=== PATIENT | male | born 1945 | race Caucasian/White ===

== ENCOUNTER 2023-05-13 09:29 | Outpatient (CLI) | payer MEDICARE, OTHER, SELFPAY | END 2023-05-13 09:30 | disposition home or self-care (01) | LOC: AMB 05-22 00:55 | PROVIDERS: Visit Provider Student in an Organized Health Care Education/Training Program | DX: R55 Syncope and collapse (principal); S49.92XA Unspecified injury of left shoulder and upper arm, initial encounter; W01.0XXA Fall on same level from slipping, tripping and stumbling without subsequent striking against object, initial encounter; Y92.009 Unspecified place in unspecified non-institutional (private) residence as the place of occurrence of the external cause | CPT/HCPCS: A0425; A0427 ==

== ENCOUNTER 2023-05-13 10:11 | Emergency (ER) | payer MEDICARE, OTHER, SELFPAY ==
[2023-05-13] VITALS (19 sets, daily range): BP systolic 125–170; BP diastolic 65–80; PULSE 50–63; RESP 12–16; TEMP 36.4; O2SAT 94–98; BMI 29.1
--- NOTE | 2023-05-13 10:33 | CRLHL7_ITS ---
For Patients: As a result of the Century Cures Act, medical imaging exams and procedure reports are released immediately into your electronic medical record. You may view this report before your referring provider. If you have questions, please contact your health care provider. Indication: FELL AND HIT HIS LEFT SHOULDER AND ELBOW Technique: Three views of the left shoulder Comparison: None. Findings/Impression: No acute fracture or malalignment. There are mild degenerative changes of the acromioclavicular joint. No significant degenerative changes of the glenohumeral joint. There may be slight superior subluxation of the humerus relative to the glenoid, which can be seen with chronic rotator cuff injury. No suspicious osseous lesions. No soft tissue abnormalities. Small calcified granuloma in the left upper lobe; otherwise, the lungs are clear. Dictated by José Manuel Conde MD @ 05/13/2023 11:08:57 AM (Electronically Signed)
--- NOTE | 2023-05-13 10:33 | CRLHL7_ITS ---
For Patients: As a result of the Century Cures Act, medical imaging exams and procedure reports are released immediately into your electronic medical record. You may view this report before your referring provider. If you have questions, please contact your health care provider. HISTORY: Fall, trauma. TECHNIQUE: Three views. FINDINGS: There is no radiographically evident acute/displaced fracture/dislocation. No evidence of elbow joint effusion. Cortical contour, bone density and bony alignment appear normal. Dictated by Mike Dennis MD @ 05/13/2023 11:11:25 AM (Electronically Signed)
--- NOTE | 2023-05-13 10:34 | CRLHL7_ITS ---
For Patients: As a result of the Century Cures Act, medical imaging exams and procedure reports are released immediately into your electronic medical record. You may view this report before your referring provider. If you have questions, please contact your health care provider. INDICATION Fall. TECHNIQUE: Noncontrast CT images of the brain. COMPARISON: None. FINDINGS: The ventricles and sulci are within normal limits for patient age. No mass effect or midline shift. The romero-white differentiation is maintained. No acute intracranial hemorrhage or pathologic extra-axial fluid collection. Scattered hypoattenuation in the supratentorial white matter, typical for mild chronic microvascular ischemic changes. Intracranial atherosclerotic calcifications. The globes are symmetric. The calvarium is intact. Minimal ethmoid sinus mucosal thickening. The mastoid air cells are clear. IMPRESSION: No acute intracranial hemorrhage or mass effect. Please note that all CT scans at this facility use dose modulation, iterative reconstruction, and/or weight-based dosing when appropriate to reduce radiation dose to as low as reasonably achievable. Dictated by Otf Nickerson MD @ 05/13/2023 11:11:34 AM (Electronically Signed)
--- NOTE | 2023-05-13 10:34 | CRLHL7_ITS ---
For Patients: As a result of the Century Cures Act, medical imaging exams and procedure reports are released immediately into your electronic medical record. You may view this report before your referring provider. If you have questions, please contact your health care provider. INDICATION: Fall. TECHNIQUE: Noncontrast CT images of the cervical spine. COMPARISON: None. FINDINGS: Mild reversal of the cervical lordosis. Mild rightward cervical curvature. No acute fracture or traumatic subluxation. Advanced degenerative changes at the atlantodental articulation. Grade 1 anterolisthesis of C2 on C3 and C3 on C4, and C4 on C5. Advanced disc height loss at C4-5 and C5-6. Multilevel posterior disc osteophyte complexes contribute up to mild spinal canal narrowing at C4-5 and C5-6. Multilevel uncinate spurring and facet arthropathy contributing up to advanced neural foraminal stenosis on the right at C5-6. No concerning opacities in the lung apices. IMPRESSION: 1. No acute fracture or traumatic subluxation. 2. Multilevel cervical spondylosis. Please note that all CT scans at this facility use dose modulation, iterative reconstruction, and/or weight-based dosing when appropriate to reduce radiation dose to as low as reasonably achievable. Dictated by Otf Nickerson MD @ 05/13/2023 11:14:24 AM (Electronically Signed)
--- NOTE | 2023-05-13 10:41 | ED.FALL ---
HPI - Fall General Date Seen: 05/13/23 Chief Complaint: Fall/Minor Trauma Stated Complaint: Fall Time Seen by Provider: 05/13/23 10:22 Source: patient and EMS Mode of arrival: EMS Limitations: no limitations History of Present Illness HPI Narrative: Patient is a 77-year-old male with a history of high blood pressure, hyperlipidemia presenting to the emergency department for a fall. He is complaining about left shoulder pain. He states he was feeling his water cup up with water when he turned around and tripped over a step stool that was behind him. He was falling down and states he tried to keep his head from hitting the ground but cannot say for certain that he did not hit his head. After that he went to a chair and was told he passed out. His states she thinks he was only out for short amount time. She does admit having Alzheimer's and has trouble with details. Patient does states he was feeling nauseated and lightheaded before he passed out but now feels back to normal. Denies fevers, chills, chest pain, shortness of breath, weakness, numbness, abdominal pain, dizziness, vision changes. Main complaint is the left shoulder pain. Related Data Home Medications Medication Instructions Recorded Confirmed acetaminophen 500 mg capsule 500 mg PO Q6H PRN 05/13/23 05/13/23 amlodipine 10 mg tablet 10 mg PO DAILY 05/13/23 05/13/23 aspirin 81 mg capsule 81 mg PO DAILY 05/13/23 05/13/23 atorvastatin 10 mg tablet 10 mg PO QHS 05/13/23 05/13/23 doxazosin 1 mg tablet (Cardura) 1 mg PO DAILY 05/13/23 05/13/23 gabapentin 300 mg capsule 300 mg PO BID 05/13/23 05/13/23 losartan 50 mg tablet 50 mg PO BID 05/13/23 05/13/23 pantoprazole 40 mg tablet,delayed 40 mg PO DAILY 05/13/23 05/13/23 release tadalafil 5 mg tablet (Cialis) 5 mg PO DAILY 05/13/23 05/13/23 triamterene 37.5 1 cap PO DAILY 05/13/23 05/13/23 mg-hydrochlorothiazide 25 mg capsule Allergies Allergy/AdvReac Type Severity Reaction Status Date / Time chlorpromazine AdvReac Unknown Verified 05/13/23 10:16 [From Chloe + Isabelazine] Review of Systems Status of ROS: Reports: 10 or more systems reviewed and unremarkable except as noted in History and below PFSH PFS Social History Smoking Status: Never smoker Do you use any of these nicotine containing products: None How often do you have a drink containing alcohol: never AUDIT-C Alcohol total score: 0 Non-prescribed substance use: denies use Exam Narrative: Exam Narrative: Const: Well-nourished, Well-developed, in mild distress Eyes: PERRL, no conjunctival injection, and symmetrical lids HENT: Atraumatic external nose and ears. Moist mucous membranes. Neck: Symmetric, trachea midline, No thyromegaly. CVS: Bradycardic, No murmurs or gallops. Peripheral pulses 2+ and equal in all extremities RESP: Unlabored respiratory effort. Clear to auscultation bilaterally. GI: Nontender/Nondistended, No rebound or guarding. MSK:Extremities w/o deformity, tenderness to anterior left shoulder and left elbow, no spinal tenderness or step-offs noted Skin: Warm, Dry. No rashes or lesions. Neuro: Normal Muscle tone, No focal neurological deficits. GCS 15 Psych: Awake, Alert, & Oriented x3. Appropriate mood and affect. Const: Vital Signs, click to edit/add: Vital Signs - 24 hr 05/13/23 10:12 05/13/23 10:18 05/13/23 10:21 Temperature 97.5 F L Pulse Rate 56 L 55 L Pulse Rate [Pulse Oximeter] 56 L Pulse Rate [orthos tatic lying Pulse Oximeter] Pulse Rate [orthos tatic sitting Puls e Oximeter] Pulse Rate [orthos tatic standing Pul se Oximeter] Respiratory Rate 14 14 16 Blood Pressure 139/70 138/80 Blood Pressure [Ri ght Upper Arm] 139/70 Blood Pressure [or thostatic lying Ri ght Arm] Blood Pressure [or thostatic sitting Right Arm] Blood Pressure [or thostatic standing Right Arm] Pulse Oximetry 98 98 97 Oxygen Delivery Me thod Room Air 05/13/23 10:32 05/13/23 10:42 05/13/23 11:07 Temperature Pulse Rate 56 L 59 L 55 L Pulse Rate [Pulse Oximeter] Pulse Rate [orthos tatic lying Pulse Oximeter] Pulse Rate [orthos tatic sitting Puls e Oximeter] Pulse Rate [orthos tatic standing Pul se Oximeter] Respiratory Rate 12 14 12 Blood Pressure 125/67 127/68 139/75 Blood Pressure [Ri ght Upper Arm] Blood Pressure [or thostatic lying Ri ght Arm] Blood Pressure [or thostatic sitting Right Arm] Blood Pressure [or thostatic standing Right Arm] Pulse Oximetry 95 94 97 Oxygen Delivery Me thod 05/13/23 11:13 05/13/23 11:22 05/13/23 11:32 Temperature Pulse Rate 56 L 54 L 50 L Pulse Rate [Pulse Oximeter] Pulse Rate [orthos tatic lying Pulse Oximeter] Pulse Rate [orthos tatic sitting Puls e Oximeter] Pulse Rate [orthos tatic standing Pul se Oximeter] Respiratory Rate 14 12 14 Blood Pressure 170/76 H 140/74 H 131/67 Blood Pressure [Ri ght Upper Arm] Blood Pressure [or thostatic lying Ri ght Arm] Blood Pressure [or thostatic sitting Right Arm] Blood Pressure [or thostatic standing Right Arm] Pulse Oximetry 96 97 95 Oxygen Delivery Me thod 05/13/23 11:42 05/13/23 11:51 05/13/23 12:00 Temperature Pulse Rate 55 L 51 L Pulse Rate [Pulse Oximeter] Pulse Rate [orthos tatic lying Pulse Oximeter] 51 L Pulse Rate [orthos tatic sitting Puls e Oximeter] 62 Pulse Rate [orthos tatic standing Pul se Oximeter] 60 Respiratory Rate 12 16 Blood Pressure 138/66 137/66 Blood Pressure [Ri ght Upper Arm] Blood Pressure [or thostatic lying Ri ght Arm] 133/67 Blood Pressure [or thostatic sitting Right Arm] 135/68 Blood Pressure [or thostatic standing Right Arm] 150/65 H Pulse Oximetry 95 94 Oxygen Delivery Me thod 05/13/23 12:01 05/13/23 12:02 05/13/23 12:04 Temperature Pulse Rate 62 57 L 63 Pulse Rate [Pulse Oximeter] Pulse Rate [orthos tatic lying Pulse Oximeter] Pulse Rate [orthos tatic sitting Puls e Oximeter] Pulse Rate [orthos tatic standing Pul se Oximeter] Respiratory Rate 12 14 12 Blood Pressure 133/67 135/68 150/65 H Blood Pressure [Ri ght Upper Arm] Blood Pressure [or thostatic lying Ri ght Arm] Blood Pressure [or thostatic sitting Right Arm] Blood Pressure [or thostatic standing Right Arm] Pulse Oximetry 97 96 97 Oxygen Delivery Me thod 05/13/23 12:05 05/13/23 12:12 05/13/23 12:15 Temperature Pulse Rate 53 L 53 L 51 L Pulse Rate [Pulse Oximeter] Pulse Rate [orthos tatic lying Pulse Oximeter] Pulse Rate [orthos tatic sitting Puls e Oximeter] Pulse Rate [orthos tatic standing Pul se Oximeter] Respiratory Rate Blood Pressure 139/68 Blood Pressure [Ri ght Upper Arm] Blood Pressure [or thostatic lying Ri ght Arm] Blood Pressure [or thostatic sitting Right Arm] Blood Pressure [or thostatic standing Right Arm] Pulse Oximetry 97 95 95 Oxygen Delivery Me thod 05/13/23 12:22 Temperature Pulse Rate 59 L Pulse Rate [Pulse Oximeter] Pulse Rate [orthos tatic lying Pulse Oximeter] Pulse Rate [orthos tatic sitting Puls e Oximeter] Pulse Rate [orthos tatic standing Pul se Oximeter] Respiratory Rate Blood Pressure 141/71 H Blood Pressure [Ri ght Upper Arm] Blood Pressure [or thostatic lying Ri ght Arm] Blood Pressure [or thostatic sitting Right Arm] Blood Pressure [or thostatic standing Right Arm] Pulse Oximetry 95 Oxygen Delivery Me thod Course Vital Signs Vital signs: Initial Vital Signs Temperature 97.5 F L 05/13/23 10:12 Temperature Source Temporal Artery Scan 05/13/23 10:12 Pulse Rate 56 L 05/13/23 10:12 Pulse Rhythm Regular 05/13/23 10:12 Respiratory Rate 14 05/13/23 10:12 Blood Pressure 139/70 05/13/23 10:12 Blood Pressure Mean 93 05/13/23 10:12 Blood Pressure Position Supine 05/13/23 10:12 Pulse Oximetry 98 05/13/23 10:12 Oxygen Delivery Method Room Air 05/13/23 10:12 Vital Signs Temperature 97.5 F L 05/13/23 10:12 Pulse Rate 56 L 05/13/23 10:12 Respiratory Rate 14 05/13/23 10:12 Blood Pressure 139/70 05/13/23 10:12 Pulse Oximetry 98 05/13/23 10:12 Oxygen Delivery Method Room Air 05/13/23 10:12 Temperature 97.5 F L 05/13/23 10:12 Pulse Rate 59 L 05/13/23 12:22 Respiratory Rate 12 05/13/23 12:04 Blood Pressure 141/71 H 05/13/23 12:22 Pulse Oximetry 95 05/13/23 12:22 Oxygen Delivery Method Room Air 05/13/23 10:12 MDM - Fall MDM Narrative Medical decision making narrative: TTA was called by nursing staff. Patient is a 77-year-old male presenting to the emergency department after a fall. The initial fall sounds like it was all mechanical in nature. He is not sure if he hit his head so I will CT his head, cervical spine. X-rays his left shoulder and left elbow. Also sounds like he has syncopal episode shortly after this fall. This could have been vasovagal by cannot say for sure. He is bradycardic in the 50s but he is not sure what is regular heart rate is. I did review both epic and expanse and could not find previous heart rates to see if this bradycardia is new or not. EKG, CBC, CMP, COVID/flu/RSV, troponin all ordered. EKG shows sinus bradycardia with an apparent 1st degree AV block. No other concerning findings. Lab work all returned showing no concerning abnormalities. We did do orthostatic blood pressures that showed no concerning findings. His imaging also shows no abnormalities. CT head and cervical spine showed no acute findings per radiologist and my interpretation. X-rays also showed no concerning abnormalities per my and the radiologist's interpretation. There are some chronic changes seen on the left shoulder but nothing acutely concerning. He is otherwise doing well at this time. While he is bradycardic in the 50s I cannot say this is new or not and he did well when life sternum up for orthostatic blood pressures. I do not believe this is something needs to stay in the hospital for any does states she has follow-up with his primary doctor next week. I believe he is safe for discharge Lab Data Labs: Lab Results 05/13/23 05/13/23 05/13/23 Range/Units 10:42 11:17 11:23 WBC 5.11 (4.50-11.00) K/uL RBC 3.76 L (4.30-5.90) m/uL Hgb 11.4 L (13.5-17.5) gm/dL Hct 35.1 L (37.0-53.0) % MCV 93 (80-100) fL MCH 30 (26-34) pg MCHC 33 (32-36) gm/dL RDW Coeff of Adis 13.6 (11.5-15.5) % Plt Count 201 (140-440) K/uL Neut % (Auto) 78.3 H (42.0-72.0) % Lymph % (Auto) 14.1 L (20-44) % [place] % (Auto) 6.8 (0.0-11.0) % Eos % (Auto) 0.6 (0.0-7.0) % Baso % (Auto) 0.2 (0.0-3.0) % Neut # (Auto) 4.00 (1.7-7.0) K/uL Lymph # (Auto) 0.70 L (0.90-2.90) K/uL [place] # (Auto) 0.30 (0.00-0.90) K/UL Eos # (Auto) 0.03 (0.00-0.50) K/uL Baso # (Auto) 0.01 (0.00-0.30) K/uL Abs Immat Gran (auto) 0.00 (0.00-0.30) K/uL Imm/Tot Granulo (auto) 0.0 % Sodium 140 (135-149) mmol/L Potassium 3.9 (3.6-5.1) mmol/L Chloride 108 (96-114) mmol/L Carbon Dioxide 24 (20-32) mmol/L Anion Gap 8 (7-15) mEq/L BUN 19 (7-30) mg/dL Creatinine 1.0 (0.5-1.5) mg/dL Estimated Creat Clear 61.86 Estimated GFR 78 ml/min Glucose 102 (60-115) mg/dL Calcium 8.8 (8.4-10.6) mg/dL Total Bilirubin 0.6 (0.1-1.5) mg/dL AST 20 (12-35) U/L ALT 15 (4-50) U/L Alkaline Phosphatase 60 (40-150) U/L Total Protein 7.6 (6.0-8.3) g/dL Albumin 4.4 (3.3-5.0) g/dL SARS-CoV-2 (PCR) Negative SARS-CoV-2 (Negative) Influenza Type A (PCR) Negative PCR FLU A (Negative) Influenza Type B (PCR) Negative PCR FLU B (Negative) RSV (PCR) Negative PCR RSV (Negative) POC Troponin I 0.01 (0.01-0.04) ng/ml Imaging Data CT scan head: Radiologist's impression: No acute intracranial hemorrhage or mass effect. Please note that all CT scans at this facility use dose modulation, iterative reconstruction, and/or weight-based dosing when appropriate to reduce radiation dose to as low as reasonably achievable. Dictated by Otf Nickerson MD @ 05/13/2023 11:11:[address] scan cervical spine: Radiologist's impression: 1. No acute fracture or traumatic subluxation. 2. Multilevel cervical spondylosis. Please note that all CT scans at this facility use dose modulation, iterative reconstruction, and/or weight-based dosing when appropriate to reduce radiation dose to as low as reasonably achievable. Dictated by Otf Nickerson MD @ 05/13/2023 11:14:24 AM Left shoulder x-ray: Radiologist's impression: No acute fracture or malalignment. There are mild degenerative changes of the acromioclavicular joint. No significant degenerative changes of the glenohumeral joint. There may be slight superior subluxation of the humerus relative to the glenoid, which can be seen with chronic rotator cuff injury. No suspicious osseous lesions. No soft tissue abnormalities. Small calcified granuloma in the left upper lobe; otherwise, the lungs are clear. Dictated by José Manuel Conde MD @ 05/13/2023 11:08:57 AM Left elbow x-ray: Radiologist's impression: There is no radiographically evident acute/displaced fracture/dislocation. No evidence of elbow joint effusion. Cortical contour, bone density and bony alignment appear normal. Dictated by Mike Dennis MD @ 05/13/2023 11:11:25 AM ECG Data Attestation: I personally reviewed and interpreted this ECG as follows: Prior ECG tracings: not available for review Interpretation: Sinus bradycardia with a rate of 50 beats per minute, first-degree AV block, rest of intervals normal, normal axis, right bundle-branch block. No ST or T-wave abnormalities. Discharge Plan Discharge Clinical Impression: Bradycardia Acute shoulder pain Qualifiers: Laterality: left Qualified Code(s): M25.512 - Pain in left shoulder Syncope Qualifiers: Syncope type: unspecified Qualified Code(s): R55 - Syncope and collapse Patient Disposition: Home, Self-Care Condition: Stable Instructions: Bradycardia (ED), Syncope in Older Adults (ED) Additional Instructions: Return to the emergency department again if you had developed lightheadedness or feeling a going to pass out. Make sure to follow-up with your primary care provider about your low heart rate. Return to emergency department for new or worsening symptoms Your shoulder x-ray did show possible chronic rotator cuff tear and some mild AC joint arthritis Prescriptions: No Action acetaminophen 500 mg capsule 500 mg PO Q6H PRN amlodipine 10 mg tablet 10 mg PO DAILY aspirin 81 mg capsule 81 mg PO DAILY atorvastatin 10 mg tablet 10 mg PO QHS doxazosin [Cardura] 1 mg tablet 1 mg PO DAILY gabapentin 300 mg capsule 300 mg PO BID losartan 50 mg tablet 50 mg PO BID pantoprazole 40 mg tablet,delayed release (DR/EC) 40 mg PO DAILY tadalafil [Cialis] 5 mg tablet 5 mg PO DAILY triamterene-hydrochlorothiazid 37.5-25 mg capsule 1 cap PO DAILY Follow Up/Referrals: Provider,Not a Local [Primary Care Provider] - Stand Alone Forms: [email or web address] Info Instructions
[2023-05-13 11:25] LABS: Basophils Absolute Auto 0.01 K/uL (0.00-0.30); Basophils Percent Auto 0.2 % (0.0-3.0); Eosinophils Absolute Auto 0.03 K/uL (0.00-0.50); Eosinophils Percent Auto 0.6 % (0.0-7.0); Hematocrit 35.1 % (37.0-53.0); Hemoglobin* 11.4 gm/dL (13.5-17.5); Lymphocytes Percent Auto 14.1 % (20-44); Mean Corpuscular HGB Conc 33 gm/dL (32-36); Mean Corpuscular Hemoglobin 30 pg (26-34); Mean Corpuscular Volume 93 fL (80-100); Monocytes Percent Auto 6.8 % (0.0-11.0); Neutrophils Percent Auto 78.3 % (42.0-72.0); Platelet Count* 201 K/uL (140-440); RDW Coefficient of Variation % 13.6 % (11.5-15.5); Red Blood Count 3.76 m/uL (4.30-5.90); White Blood Count* 5.11 K/uL (4.50-11.00)
[2023-05-13 11:26] LABS: Slide Review Reflex No
[2023-05-13 11:38] LABS: Chloride* 108 mmol/L (96-114)
[2023-05-13 11:39] LABS: Albumin* 4.4 g/dL (3.3-5.0); Potassium* 3.9 mmol/L (3.6-5.1); Sodium* 140 mmol/L (135-149)
[2023-05-13 11:41] LABS: Est. Creatinine Clearance* 61.86; Estimated Glomerular Filt Rate 78 ml/min
[2023-05-13 11:42] LABS: Alanine Aminotransferase* 15 U/L (4-50); Alkaline Phosphatase* 60 U/L (40-150); Anion Gap 8 mEq/L (7-15); Aspartate Amino Transferase* 20 U/L (12-35); Bilirubin Total* 0.6 mg/dL (0.1-1.5); Blood Urea Nitrogen* 19 mg/dL (7-30); Calcium* 8.8 mg/dL (8.4-10.6); Carbon Dioxide* 24 mmol/L (20-32); Glucose* 102 mg/dL (60-115); Total Protein* 7.6 g/dL (6.0-8.3)
[2023-05-13 11:49] LABS: PCR FLU A Negative PCR FLU A (Negative); PCR FLU B Negative PCR FLU B (Negative); PCR RSV Negative PCR RSV (Negative); SARS PCR* Negative SARS-CoV-2 (Negative)
[2023-05-13 11:49] LABS: Troponin, Point-of-Care* 0.01 ng/ml (0.01-0.04)
== END 2023-05-13 12:36 | disposition home or self-care (01) ==
PROVIDERS: Emergency Provider Student in an Organized Health Care Education/Training Program
DX: R00.1 Bradycardia, unspecified (principal); M25.512 Pain in left shoulder; R55 Syncope and collapse
CPT/HCPCS: 36415; 70450; 72125; 73030; 73080; 80053; 84484; 85025; 87631; 93005; 99283; 99284; 99285; 99291; G0390